=== PATIENT | female | born 1930 | race Caucasian/White ===

== ENCOUNTER 2017-10-16 17:31 | Inpatient (IN) | payer MEDICARE ==
[2017-10-16] MEDS ORDERED: SODIUM BICARB 8.4% 50 ML VIAL (1 MEQ/ML) IV ONE (19:42)
[2017-10-16] MEDS ORDERED: SODIUM BICARB 8.4% 50 ML SYR (1 MEQ/ML) IV ONE (20:30)
[2017-10-16] MEDS: DEXTROSE 5% IN WATER 1,000 ML with SODIUM BICARB (1 MEQ/ML) 100 ML IV SCH (21:01)
[2017-10-16] MEDS: METOPROLOL TARTRATE 50 MG TAB PO SCH (21:02)
[2017-10-16] MEDS: ASPIRIN 81 MG PO SCH (21:03)
--- NOTE | 2017-10-16 21:33 | HP ---
HISTORY AND PHYSICAL ATTENDING PHYSICIAN: Dr. Gadiel Faye. DATE OF ADMISSION: 10/16/2017. CHIEF COMPLAINT: Shortness of breath. HISTORY OF PRESENT ILLNESS: This elderly female presents to the office with complaint of being short of breath for the past at least 4 or 5 days. The patient said she had a little bit symptoms suggestive of possible flu. She has had no symptoms of fever, chills, cough, but does feel cold all the time. Denied any cough, congestion, or any dysuria. The patient does have some frequent loose stools. She has history of hyperkalemia and does use Kayexalate with help. The patient also has a history of chronic kidney disease stage 4 and chronic acidosis with CO2 generally running about 15. The patient presents to the office without any other symptoms of chest pain, angina, palpitations. She does have a history of coronary artery disease. The patient has history of chronic congestive cardiac failure. Probable mild COPD and history of left nephrectomy. She does have history of degenerative arthritis. Otherwise no history of any CVA, liver disease, kidney disease, or bleeding. Does have some mild chronic anemia. The patient otherwise is fairly active. No history of any CVA. PAST MEDICAL HISTORY: Past history of hypothyroidism, on replacement therapy. 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 Had osteoporotic compression fractures of the spine. PAST SURGICAL HISTORY: Appendectomy, total abdominal hysterectomy, left nephrectomy, multiple bowel surgeries for obstruction, lumbosacral surgery. Also has a previous history of colonoscopy almost 11 years ago. PERSONAL HISTORY: Nonsmoker. Alcohol none. ALLERGIES: THE PATIENT REPORTS ALLERGIES TO FLU INJECTIONS. However, the patient has had a Pneumovax on 12/10/2014. She did have a flu vaccine on 07/09/2017. MORPHINE which causes itching. MEDICATIONS: Include [place] 5/325 q.i.d., metoprolol 50 mg b.i.d. Aspirin 81 mg daily. Vitamin B12 daily. Levothyroxine 150 mcg daily. Loperamide p.r.n. t.i.d. Multivitamins daily. Sodium bicarb 2 tabs t.i.d. and Kayexalate 15 g twice a week. SOCIAL HISTORY: Patient is , lives alone. Daughter helps around. FAMILY HISTORY: Family medical history: Father at age of 90 of unknown causes. Mother at age 65. She had a thoracic aortic aneurysm and had a brother at the age of 50, had alcoholic dependency. Patient has 1 daughter and 1 son and both in good health. REVIEW OF SYSTEMS: Neuro: Denies any headaches, dizziness. No double vision or blurred vision. No symptoms of TIA, syncope or seizures. Psych: No anxiety, depression. CARDIAC: Denies chest pain, angina, palpitations. Respiratory: Present complaint of shortness of breath. No cough. No hemoptysis. GI no nausea, vomiting, abdominal pain. Some mild chronic diarrhea. no symptoms of dysuria, hematuria, urgency, frequency. Extremities: No pain. Mild edema. The patient does have chronic arthritic symptoms. CONSTITUTIONAL: No fever or chills. Hematological: History of mild chronic anemia. Musculoskeletal: Pain. Arthritic pain. SKIN: No rashes. PHYSICAL EXAMINATION: Pleasant female in no distress except she is tachypneic. Basically vital signs revealed show temperature 97, pulse 112, respirations 27, blood pressure 154/86, pulse ox of . HEENT: Normocephalic. NECK: Supple. No JVD. CHEST: Clear to auscultation. There is mild generalized decreased air flow. Few dry crackles at the right base. Cardiac distant. HEART: Sounds S1, S2 with no gallop. Systolic murmur 2/6 left sternal border. ABDOMEN: Soft. No palpable masses. Bowel sounds normal. No organomegaly. No abdominal bruits. Extremities reveal trace edema at the ankles. Neurological awake, alert, oriented x3 with well-coordinated movements. The fingers reveal blue right index finger. The patient has evidence of Raynaud's. LABORATORY ASSESSMENT: As an outpatient revealed a 7.7 white count, hemoglobin 12.5, MCV 123.9, platelet count 389, lymphocytes 28%. Chemistry revealed sodium 145, potassium 5.4, chloride 116, CO2 content less than 5, BUN 42, creatinine 2.6, glucose 107, alkaline phosphatase 164, amylase 113, lipase 106. Albumin 4.3. Chest x-ray, no acute evidence of any changes. ASSESSMENT: 1. Metabolic acidosis due to both renal disease and chronic mild diarrhea. 2. Coronary artery disease, stable. 3. History of nephrectomy. Left nephrectomy. 4. Mild hyperkalemia. PLAN: The patient is admitted to the hospital, she will be given 1 amp of sodium bicarbonate IV push and then IV dextrose with bicarbonate 2 amps at 100 mL/h. The patient will be continued on all sodium bicarbonate. We will ask Nephrology to see the patient. Patient's condition is discussed with the patient and daughter. Prognosis guarded. ELLIOTT / VERENICE: [id number] /
[2017-10-16] MEDS: HYDROcodone/APAP 5-325MG 1 EACH TAB PO PRN (21:42)
[2017-10-16] MEDS ORDERED: SODIUM BICARBONATE TAB 650 MG TAB PO SCH (22:00)
[2017-10-17] MEDS: HYDROcodone/APAP 5-325MG 1 EACH TAB PO PRN ×2 (05:07→20:30)
[2017-10-17] MEDS: LEVOTHYROXINE 75 MCG TAB PO SCH (05:46)
[2017-10-17] MEDS: SODIUM BICARBONATE TAB 650 MG TAB PO SCH ×4 (06:19→20:33)
[2017-10-17 06:29] LABS: Appearance,Urine Cloudy (Clear); Bacteria,Urine Rare /hpf; Bilirubin,Urine Negative (Negative); Blood,Urine Small (Negative); Color,Urine Light Yellow; Glucose,Urine (UA) Negative (Negative); Ketones,Urine Negative (Negative); Leukocyte Esterase,Urine Large (Negative); Mucus,Urine Rare /hpf; Nitrite,Urine Positive (Negative); Protein,Urine 1+ (Negative); RBC,Urine 5 /hpf (0-5); Specific Gravity,Urine 1.012 (1.001-1.035); Squamous Epithelial Cell,Urine <1 /hpf (0-4); Urobilinogen,Urine <2.0 mg/dL (<2.0); WBC,Urine >182 /hpf (0-5)
[2017-10-17] MEDS: METOPROLOL TARTRATE 50 MG TAB PO SCH ×2 (07:58→20:34)
[2017-10-17] MEDS: CIPROFLOXACIN HCL 250 MG TAB PO SCH (08:00)
[2017-10-17] MEDS: DEXTROSE 5% IN WATER 1,000 ML with SODIUM BICARB (1 MEQ/ML) 100 ML IV SCH (08:02)
[2017-10-17 08:18] LABS: Calcium 8.4 mg/dL (8.4-10.2); Potassium 4.3 mmol/L (3.5-5.1)
[2017-10-17 13:44] VITALS: BMI 19.1
--- NOTE | 2017-10-17 14:20 | P.NPCON ---
History of Present Illness - Reason for Consult acute renal failure - History of Present Illness Reason for consultation: Acute kidney injury and metabolic acidosis History of present illness: Patient is a 86-year-old female seen in renal consultation for acute kidney injury and metabolic acidosis. Patient does have chronic kidney disease stage III due to solitary right kidney with creatinine of 1.5 in October 2015. Patient states her left kidney was nonfunctioning and subsequently underwent a nephrectomy about 6 years ago. Patient also has chronic diarrhea due to bowel resection that she's had in the past due to multiple small bowel obstructions. Patient states the last few days she felt like she caught the flu. She did have 2 episodes of vomiting. She continues to have intermittent loose bowel movements. She had blood work done as an outpatient and was subsequently sent to the hospital due to acute kidney injury and severe metabolic acidosis. Her creatinine was 2.6 and is down to 2.13 today. Her bicarb level was also less than 5 and is up to 11 now. She is currently maintained on a bicarbonate drip. Oral intake is fair although she doesn't like hospital food. She denies use of NSAIDs. Denies fevers. Doesn't with itches. Denies any active bleeding. No hematuria or dysuria. Vital signs are stable. General: The patient appeared well nourished and normally developed. HEENT: Head exam is unremarkable. Neck is without jugular venous distension. LUNGS: Lungs are clear to auscultation and percussion. Breath sounds decreased. HEART: Rate and Rhythm are regular. First and second heart sounds normal. No murmurs, rubs or gallops. ABDOMEN: Abdominal exam reveals normal bowel sounds. Non-tender and non- distended. No evidence of peritonitis. EXTREMITITES: No clubbing, cyanosis, or edema. 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 Last Myocardial Infarction Date:: 2011 History of Any Multi-Drug Resistant Organisms: None Reported Past Surgical History: Appendectomy, Bowel Resection, Heart Catheterization With Stent, Hernia Repair, Hysterectomy, Orthopedic Surgery Additional Past Surgical History / Comment(s): FUISON L2 THRU L5, HEART CATH W/ STENT TO RCA , LT NEPHRECTOMY FOR KIDNEY THAT DID'NT DEVELOPE, KALINA CATARACTS, Past Anesthesia/Blood Transfusion Reactions: No Reported Reaction Date of Last Stent Placement:: Smoking Status: Never smoker - Past Family History Mother Family Medical History: Cancer Additional Family Medical History / Comment(s): CERVICL CANCER Father History Unknown: Yes Additional Family Medical History / Comment(s): IN HIS Medications and Allergies Home Medications Medication Instructions Recorded Confirmed Type Aspirin EC [Ecotrin Low Dose] 81 mg PO HS 10/12/15 10/16/17 History Cholecalciferol [Vitamin D3] 1,000 unit PO HS 10/12/15 10/16/17 History Cyanocobalamin [Vitamin B-12] 500 mcg PO DAILY 10/12/15 10/16/17 History Folic Acid 1 mg PO HS 10/12/15 10/16/17 History HYDROcodone/APAP 5-325MG [[place] 1 tab PO QID PRN 10/12/15 10/16/17 History 5-325] Levothyroxine Sodium [Synthroid] 150 mcg PO DAILY 10/12/15 10/16/17 History Metoprolol Tartrate [Lopressor] 50 mg PO BID 10/12/15 10/16/17 History Multivitamins, Thera [Multivitamin 1 tab PO DAILY 10/12/15 10/16/17 History (formulary)] [place]-3 Fatty Acids/Fish Oil [Fish 1 cap PO DAILY 10/12/15 10/16/17 History Oil 1,000 mg Softgel] Sertraline [Zoloft] 50 mg PO DAILY 10/12/15 10/16/17 History Sodium Bicarbonate Tab 1,300 mg PO TID 10/12/15 10/16/17 History Sodium Polystyrene Sulfonate 5 gm PO TUFR 10/12/15 10/16/17 History [Kayexalate] Vit C/E/Zn/Coppr/Lutein/Zeaxan 1 cap PO BID 10/12/15 10/16/17 History [Preservision Areds 2 Softgel] Allergies Allergy/AdvReac Type Severity Reaction Status Date / Time No Known Allergies Allergy Verified 10/16/17 19:20 Physical Exam Vitals: Vital Signs Temp Pulse Resp BP BP Pulse Ox 10/17/17 06:35 97.1 F L 85 20 114/63 98 10/16/17 23:00 97.6 F 85 16 150/77 90 L 10/16/17 19:03 97.0 F L 112 H 27 H 154/86 Intake and Output 10/16/17 10/17/17 10/17/17 22:59 06:59 14:59 Other: # Voids 2 # Bowel Movements 1 Weight 46 kg 46 kg Patient Weight 10/18/17 06:59 Weight 46 kg Results - Lab Results Most recent lab results Calcium 8.4 mg/dL (8.4-10.2) 10/17/17 07:25 10/17/17 07:25 Assessment and Plan Plan: Assessment: #1. Nonoliguric acute kidney injury mostly prerenal secondary to poor oral intake. Improving with IV hydration. Creatinine was 2.6 as of yesterday and is down to 2.13 today. #2. Anion gap metabolic acidosis secondary to acute kidney injury as well as diarrhea. Improving. #3. Chronic kidney disease stage III secondary to solitary right kidney with creatinine of 1.5 in October 2015. #4. Pyuria. Urine culture pending. #5. Status post left nephrectomy about 6 years ago. Plan: Continue isotonic sodium bicarbonate drip to be run at 100 mL an hour. Follow-up urine culture. Maintain oral sodium bicarbonate supplementation. Avoid nephrotoxic agents and hypotensive episodes. Encourage oral intake. Repeat electrolytes in the morning. Thank you for the consultation. I will continue to follow the patient with you during her hospital stay.
[2017-10-17] MEDS: DEXTROSE 5% IN WATER 1,000 ML with SODIUM BICARB (1 MEQ/ML) 150 ML IV SCH (14:58)
[2017-10-17] MEDS: ASPIRIN 81 MG PO SCH (20:34)
--- NOTE | 2017-10-17 22:13 | PN ---
PROGRESS NOTE CHIEF COMPLAINT: Re-evaluation. HISTORY OF PRESENT ILLNESS: This is a 86-year-old female who was admitted to the hospital because of shortness of breath. The patient's shortness of breath was mostly related to hypoventilation from metabolic acidosis. The patient's CO2 content was less than 5. She is feeling much better today. Patient otherwise denies significant other symptoms. REVIEW OF SYSTEMS: NEURO: Denies any headaches, dizziness. PSYCH: No anxiety. CARDIAC: No chest pain, angina, palpitations. RESPIRATORY: Denies shortness of breath, cough, hemoptysis. GI: No nausea, vomiting, abdominal pain. The diarrhea has improved. : No symptoms of dysuria or hematuria. EXTREMITIES: No pain. CONSTITUTIONAL: No fever or chills. PHYSICAL EXAMINATION: Pleasant female, in no distress. Vital signs reveal temperature 97.1, pulse 85, respirations 20, blood pressure 114/63, pulse ox of 98% on room air. HEENT: Normocephalic. NECK: Supple. No JVD. CHEST: Clear to auscultation and percussion. CARDIAC: Normal S1, S2 with no gallop. Systolic murmur 2/6, left sternal border. ABDOMEN: Soft. Bowel sounds present. Extremities reveal trace edema. NEUROLOGIC: Awake, alert, oriented with well-coordinated movements. LABORATORY ASSESSMENT: Sodium 142, potassium 4.3, chloride 112, CO2 content 11. BUN 44, creatinine 2.13. Urinalysis with positive nitrites and pyuria. ASSESSMENT: 1. Acute kidney failure, improving. 2. Chronic renal failure. 3. History of nephrectomy. 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 5. Chronic diarrhea. 6. Probable urinary tract infection, asymptomatic. PLAN: The patient has been started on Cipro pending culture. Meanwhile, the patient will be continued on the bicarbonate and hydration. The patient's condition was discussed with the patient. Prognosis is guarded. I reviewed the consultation report from Dr. Barnes. The patient's condition is improved. Continue present regimen. MMODL / IJN: [id number] /
[2017-10-18] MEDS: DEXTROSE 5% IN WATER 1,000 ML with SODIUM BICARB (1 MEQ/ML) 150 ML IV SCH (01:22)
[2017-10-18] MEDS: HYDROcodone/APAP 5-325MG 1 EACH TAB PO PRN ×4 (02:00→22:36)
[2017-10-18] MEDS: LEVOTHYROXINE 75 MCG TAB PO SCH (06:02)
[2017-10-18 08:18] LABS: Magnesium 1.7 mg/dL (1.6-2.3); Potassium 3.9 mmol/L (3.5-5.1)
[2017-10-18] MEDS: CIPROFLOXACIN HCL 250 MG TAB PO SCH (08:47)
[2017-10-18] MEDS: METOPROLOL TARTRATE 50 MG TAB PO SCH ×2 (08:47→22:33)
[2017-10-18] MEDS: SODIUM BICARBONATE TAB 650 MG TAB PO SCH ×3 (08:47→22:33)
--- NOTE | 2017-10-18 11:12 | P.PN ---
Subjective Patient is seen in follow-up for acute kidney injury and metabolic acidosis. Her bicarb level is up to 20 today. She is currently maintained on sodium bicarbonate drip. Renal function is also improving with creatinine down to 1.75 today. Patient does have chronic kidney disease stage III with baseline creatinine near 1.5 due to solitary right kidney. She is known to have chronic diarrhea and has undergone bowel resection in the past due to multiple small bowel obstructions. She continues to have loose bowel movements. She is feeling somewhat nauseous today. No vomiting. Denies chest pain or shortness of breath. Vital signs are stable. General: The patient appeared well nourished and normally developed. HEENT: Head exam is unremarkable. Neck is without jugular venous distension. LUNGS: Lungs are clear to auscultation and percussion. Breath sounds decreased. HEART: Rate and Rhythm are regular. First and second heart sounds normal. No murmurs, rubs or gallops. ABDOMEN: Abdominal exam reveals normal bowel sounds. Non-tender and non- distended. No evidence of peritonitis. EXTREMITITES: No clubbing, cyanosis, or edema. Objective - Vital Signs Vital signs: Vital Signs Temp 97.4 F L 10/18/17 07:00 Pulse 84 10/18/17 07:00 Resp 16 10/18/17 07:00 BP 135/87 10/18/17 07:00 Pulse Ox 97 10/18/17 07:00 Intake & Output 10/17/17 10/18/17 10/18/17 18:59 06:59 18:59 Intake Total 480 500 Balance 480 500 Weight 46 kg Intake: Oral 480 500 Other: # Voids 3 2 # Bowel Movements 2 0 - Labs CBC & Chem 7: 10/18/17 07:05 Labs: Abnormal Lab Results - Last 24 Hours (Table) 10/18/17 Range/Units 07:05 Carbon Dioxide 20 L (22-30) mmol/L BUN 34 H (7-17) mg/dL Creatinine 1.75 H (0.52-1.04) mg/dL Calcium 8.0 L (8.4-10.2) mg/dL Assessment and Plan Plan: Assessment: #1. Nonoliguric acute kidney injury mostly prerenal secondary to poor oral intake. Improving with IV hydration. Creatinine was 2.6 on admission and is down to 1.75 today. #2. Anion gap metabolic acidosis secondary to acute kidney injury as well as diarrhea. Improving. #3. Chronic kidney disease stage III secondary to solitary right kidney with creatinine of 1.5 in October 2015. #4. Pyuria. Urine culture pending. #5. Status post left nephrectomy about 6 years ago. Plan: Discontinue sodium bicarbonate drip. Start normal saline at 60 mL an hour for maintenance fluids. Follow-up urine culture. Maintain oral sodium bicarbonate supplementation. Avoid nephrotoxic agents and hypotensive episodes. Encourage oral intake. Repeat electrolytes in the morning. Anticipate discharge soon. She will and to follow-up as an outpatient in the next 2 weeks.
[2017-10-18] MEDS: SODIUM CHLORIDE 0.9% 1,000 ML IV SCH (13:23)
[2017-10-18] MEDS: ONDANSETRON 4 MG/2 ML VIAL IVP PRN ×2 (14:37→21:05)
--- NOTE | 2017-10-18 21:44 | PN ---
PROGRESS NOTE ATTENDING PHYSICIAN: Dr. Eddy Faye. CHIEF COMPLAINT: Re-evaluation. HISTORY OF PRESENT ILLNESS: This lady was admitted to the hospital because of shortness of breath. The patient is noted to have significant metabolic acidosis. She is feeling better today. Her tachypnea has resolved. Her CO2 content is up to 20. The patient has underlying chronic renal failure, probably RTA 4 as well as previous nephrectomy. She also has a history of chronic kidney disease stage 4 and a history of diarrhea. Would expect the patient's potassium to go down with the diarrhea; however, the patient tends to have hyperkalemia and suspect this is because of the high RTA 4. The patient's condition discussed with the patient. She is feeling better, as mentioned above. REVIEW OF SYSTEMS: NEURO: Denies any headaches, dizziness. PSYCH: No anxiety. CARDIAC: No chest pain, angina, palpitations. RESPIRATORY: Denies shortness of breath, cough. GI: No nausea, vomiting, abdominal pain, diarrhea. : No symptoms of dysuria, hematuria. EXTREMITIES: No pain, edema. CONSTITUTIONAL: No fever, chills. PHYSICAL EXAMINATION: Pleasant female in no distress. Vitals reveal temperature 97.4, pulse 84, respirations 16, blood pressure 135/87. HEENT: Normocephalic NECK: Supple. No JVD. CHEST: Clear to auscultation. Mild generalized decreased air flow. CARDIAC: Normal S1, S2 with no gallop. Systolic murmur 2/6 left sternal border. ABDOMEN: Soft. No palpable masses. Bowel sounds normal. No organomegaly. No femoral bruits. Extremities reveal trace edema. NEUROLOGIC: Awake, alert, oriented with well-coordinated movements. LABORATORY ASSESSMENT: Sodium 143, potassium 3.9, chloride 106, CO2 content 20, BUN 34, creatinine 1.75. Urine culture is also pending. ASSESSMENT: 1. Metabolic acidosis, improving. 2. Acute on chronic renal failure. 3. History of left nephrectomy. 4. Coronary artery disease, stable. PLAN: The patient is stable. Continue present medical regimen. Patient's condition discussed with the patient. Prognosis guarded. Patient's potential discharge home tomorrow. MMODL / IJN: [id number] /
[2017-10-18] MEDS: ASPIRIN 81 MG PO SCH (22:33)
[2017-10-19] MEDS: HYDROcodone/APAP 5-325MG 1 EACH TAB PO PRN ×3 (04:13→21:18)
[2017-10-19] MEDS: ONDANSETRON 4 MG/2 ML VIAL IVP PRN ×2 (05:27→16:26)
[2017-10-19] MEDS: LEVOTHYROXINE 75 MCG TAB PO SCH (06:22)
[2017-10-19] MEDS: SODIUM CHLORIDE 0.9% 1,000 ML IV SCH ×2 (06:23→20:59)
[2017-10-19] MEDS: SODIUM BICARBONATE TAB 650 MG TAB PO SCH ×3 (08:54→20:58)
[2017-10-19] MEDS: CIPROFLOXACIN HCL 250 MG TAB PO SCH (08:54)
[2017-10-19] MEDS: METOPROLOL TARTRATE 50 MG TAB PO SCH ×2 (08:54→20:58)
[2017-10-19 09:22] LABS: Albumin 3.5 g/dL (3.5-5.0); Calcium 7.9 mg/dL (8.4-10.2); Potassium 3.6 mmol/L (3.5-5.1); Total Bilirubin 0.2 mg/dL (0.2-1.3); Total Protein 6.1 g/dL (6.3-8.2)
[2017-10-19 09:32] LABS: HCT 35.8 % (34.0-46.0); HGB 10.6 gm/dL (11.4-16.0); Hypochromasia Moderate; MCH 34.7 pg (25.0-35.0); MCHC 29.8 g/dL (31.0-37.0); Macrocytosis Marked; Mean Platelet Volume 7.6; Platelet Count 495 k/uL (150-450); Poikilocytosis Slight; RBC 3.06 m/uL (3.80-5.40); RDW 15.9 % (11.5-15.5); WBC 6.6 k/uL (3.8-10.6)
[2017-10-19 09:33] LABS: MCV 116.7 fL (80.0-100.0)
--- NOTE | 2017-10-19 14:13 | P.PN ---
Subjective Patient is seen in follow-up for acute kidney injury and metabolic acidosis. Her bicarb level is up to 26 today. Renal function is also improving with creatinine down to 1.57 today. Patient does have chronic kidney disease stage III with baseline creatinine near 1.5 due to solitary right kidney. She is known to have chronic diarrhea and has undergone bowel resection in the past due to multiple small bowel obstructions. She continues to have loose bowel movements. She is feeling somewhat nauseous today. No vomiting. Denies chest pain or shortness of breath. Vital signs are stable. General: The patient appeared well nourished and normally developed. HEENT: Head exam is unremarkable. Neck is without jugular venous distension. LUNGS: Lungs are clear to auscultation and percussion. Breath sounds decreased. HEART: Rate and Rhythm are regular. First and second heart sounds normal. No murmurs, rubs or gallops. ABDOMEN: Abdominal exam reveals normal bowel sounds. Non-tender and non- distended. No evidence of peritonitis. EXTREMITITES: No clubbing, cyanosis, or edema. Objective - Vital Signs Vital signs: Vital Signs Temp 97.6 F 10/19/17 07:00 Pulse 80 10/19/17 08:00 Resp 16 10/19/17 08:00 BP 127/74 10/19/17 07:00 Pulse Ox 92 L 10/19/17 07:00 Intake & Output 10/18/17 10/19/17 10/19/17 18:59 06:59 18:59 Intake Total 150 300 240 Balance 150 300 240 Intake: Oral 150 300 240 Other: # Voids 5 1 # Bowel Movements 0 # Emeses 1 - Labs CBC & Chem 7: 10/19/17 08:44 10/19/17 08:03 Labs: Abnormal Lab Results - Last 24 Hours (Table) 10/19/17 10/19/17 Range/Units 08:03 08:44 RBC 3.06 L (3.80-5.40) m/uL Hgb 10.6 L (11.4-16.0) gm/dL MCV 116.7 H D (80.0-100.0) fL MCHC 29.8 L (31.0-37.0) g/dL RDW 15.9 H (11.5-15.5) % Plt Count 495 H (150-450) k/uL BUN 22 H (7-17) mg/dL Creatinine 1.57 H (0.52-1.04) mg/dL Glucose 107 H (74-99) mg/dL Calcium 7.9 L (8.4-10.2) mg/dL Alkaline Phosphatase 145 H (38-126) U/L Total Protein 6.1 L (6.3-8.2) g/dL Microbiology - Last 24 Hours (Table) 10/17/17 05:00 Urine Culture - Preliminary Urine,Voided Gram Neg Bacilli Assessment and Plan Plan: Assessment: #1. Nonoliguric acute kidney injury mostly prerenal secondary to poor oral intake. Improving with IV hydration. Creatinine was 2.6 on admission and is down to 1.57 today. #2. Anion gap metabolic acidosis secondary to acute kidney injury as well as diarrhea. Improving. #3. Chronic kidney disease stage III secondary to solitary right kidney with creatinine of 1.5 in October 2015. #4. UTI with urine culture positive for gram-negative bacilli maintain antibiotics. #5. Status post left nephrectomy about 6 years ago. Plan: Continue normal saline to be run at 60 mL an hour. Maintain oral sodium bicarbonate supplementation. Avoid nephrotoxic agents and hypotensive episodes. Encourage oral intake. Repeat electrolytes in the morning. Anticipate discharge soon. She will and to follow-up as an outpatient in the next 2 weeks.
[2017-10-19] MEDS: ASPIRIN 81 MG PO SCH (20:58)
--- NOTE | 2017-10-19 22:30 | PN ---
PROGRESS NOTE CHIEF COMPLAINT: Re-evaluation. HISTORY OF PRESENT ILLNESS: Elderly female, 86-year-old, was admitted to the hospital with shortness of breath. Patient was noted to be acidotic. The patient does have a history of chronic renal failure. She had no evidence of any other issues except for some urinary tract infection. Patient is on Cipro. She developed some nausea and vomiting yesterday. She is still somewhat sensitive to her stomach. REVIEW OF SYSTEMS: NEURO: Denies any headaches, dizziness. PSYCH: No anxiety. CARDIAC: No chest pain, angina, palpitation. RESPIRATORY: No shortness of breath, cough, hemoptysis. GI: No nausea, vomiting, abdominal pain, diarrhea. : No symptoms of dysuria, hematuria. EXTREMITIES: No pain, edema. CONSTITUTIONAL: No fever, chills. PHYSICAL EXAMINATION: Pleasant female in no distress. Vitals are stable as recorded. HEENT: Normocephalic. NECK: Supple. No JVD. CHEST: Clear to auscultation and percussion. CARDIAC: Normal S1, S2 with no gallop. Systolic murmur 2/6, left sternal border. ABDOMEN: Soft. Bowel sounds present. Extremities reveal trace edema. Good pulses, both upper and lower extremities. NEUROLOGIC: Oriented with well-coordinated movements. LABORATORY ASSESSMENT: CBC reveals a hemoglobin of 10.6, white count 6.6. Electrolytes reveal sodium 146, potassium 3.6, chloride 105, CO2 content 26, BUN 22, creatinine 1.57. GFR 79. ASSESSMENT: 1. Metabolic acidosis, improving. 2. Nausea, vomiting; etiology unclear. Previously she was noted to have evidence of gallbladder dysfunction and intermittent nausea, vomiting. 3. Dehydration, improving. 4. Acute on chronic renal failure, improved. PLAN: Patient is stable. Continue present medical regimen. Patient's condition discussed with the patient. Prognosis is guarded. Ultrasound of the gallbladder. CBC reveals normal white count. Hemoglobin is stable at 10.6. Dehydration and acute renal failure are improved. Continue present medical regimen. MMODL / IJN: [id number] /
[2017-10-20 06:16] VITALS: RESP 16
--- NOTE | 2017-10-20 08:01 | US ---
EXAMINATION TYPE: US gallbladder DATE OF EXAM: 10/20/2017 COMPARISON: NONE CLINICAL HISTORY: nausea. Pt states RUQ pain EXAM MEASUREMENTS: Liver Length: 13.6 cm Gallbladder Wall: 0.2 cm CBD: 0.5 cm Right Kidney: 9.8 x 5.1 x 4.3 cm Pancreas: wnl Liver: wnl Gallbladder: wnl, multiple folds Evidence for sonographic [place]'s sign: No CBD: wnl Right Kidney: Echogenic in appearance with possible calculi at lower pole= 0.5 cm with slightly dila oren renal pelvis= 1.3 cm The pancreas is unremarkable. The liver is normal in size without biliary dilatation. The gallbladder is unremarkable. There is no evidence of cholelithiasis. The gallbladder wall measure s 2 mm. The distal common hepatic duct measures 5 mm. There is a nonshadowing echogenic focus in the lower pole of the right kidney measuring 5 mm. This ma y represent an angiomyolipoma. There is an extrarenal pelvis on the right. 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
[2017-10-20] MEDS: SODIUM BICARBONATE TAB 650 MG TAB PO SCH ×3 (08:23→23:00)
[2017-10-20] MEDS: METOPROLOL TARTRATE 50 MG TAB PO SCH ×2 (08:24→23:00)
[2017-10-20] MEDS: CIPROFLOXACIN HCL 250 MG TAB PO SCH (08:24)
[2017-10-20] MEDS: LEVOTHYROXINE 75 MCG TAB PO SCH (08:24)
[2017-10-20] MEDS: HYDROcodone/APAP 5-325MG 1 EACH TAB PO PRN ×3 (08:28→21:22)
[2017-10-20 08:39] LABS: Calcium 8.3 mg/dL (8.4-10.2)
[2017-10-20 08:43] LABS: Potassium 3.8 mmol/L (3.5-5.1)
[2017-10-20] MEDS: SODIUM CHLORIDE 0.9% 1,000 ML IV SCH (12:55)
--- NOTE | 2017-10-20 14:37 | P.PN ---
Subjective Progress Note Date: 10/20/17 Principal diagnosis: Acidosis and acute on chronic renal failure Chief complaint: Reevaluation. History present illness: 86-year-old female was admitted to the hospital with complaint of shortness of breath and noted to be markedly acidotic with CO2 less than 5. 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 Would expect patient to be more eukalemic or hypokalemic with the diarrhea however on the outpatient she often is hyperkalemic and is treated with Kayexalate at least twice a week. Patient' s also been on bicarbonate 1300 mg 3 times a day. Patient was doing well after hydration and bicarbonate replacement but she has had some nausea and poor intake for the past couple of days. She has had episodes of poorly functioning gallbladder.. At present she has no abdominal tenderness normal hepatic enzymes normal bilirubin. On examination on an ultrasound gallbladder does not seem to be distended. The patient had a previous significant gallbladder distention in a CAT scan couple of years ago. The patient does have evidence of urinary tract infection with Klebsiella and the patient is on Cipro as an appropriate antibiotic for sensitivity. The patient has had no vomiting but continued nausea and poor intake. We'll anticipate patient transfer and discharge home soon. REVIEW OF SYSTEMS: Neuro: Denies any headaches dizziness. Psych: Denies anxiety depression feels oriented. Cardiac: Denies chest pain and angina palpitations. Respiratory: Denies shortness of breath cough. GI: Some nausea no vomiting no abdominal pain or diarrhea or constipation : Denies dysuria hematuria. Extremities: Denies pain. No edema. Skin: Intact. Constitutional: No fever, chills. Objective - Vital Signs Vital signs: Vital Signs Temp 97.7 F 10/20/17 06:16 Pulse 65 10/20/17 08:29 Resp 16 10/20/17 08:29 BP 147/73 10/20/17 06:16 Pulse Ox 94 L 10/20/17 06:16 Intake & Output 10/19/17 10/20/17 10/20/17 18:59 06:59 18:59 Intake Total 480 Balance 480 Intake: Oral 480 Other: # Voids 4 2 # Bowel Movements 0 PHYSICAL EXAMINATION: Cooperative, at present in no acute distress. HEENT: Neck supple. No JVD. Chest: Clear to auscultation increased percussion note bilateral . Cardiac: Normal S1-S2 no gallops no murmur . Abdomen: Soft bowel sounds present. Extremities: Trace edema no tenderness Neurologically: Awake, alert, oriented with well-coordinated movements. - Labs CBC & Chem 7: 10/19/17 08:44 10/20/17 08:02 Labs: Abnormal Lab Results - Last 24 Hours (Table) 10/20/17 Range/Units 08:02 Carbon Dioxide 21 L (22-30) mmol/L BUN 19 H (7-17) mg/dL Creatinine 1.35 H (0.52-1.04) mg/dL Calcium 8.3 L (8.4-10.2) mg/dL Microbiology - Last 24 Hours (Table) 10/17/17 05:00 Urine Culture - Final Urine,Voided Klebsiella pneumoniae Assessment and Plan Assessment: ASSESSMENT: 1. Acute metabolic acidosis resolved. 2. Acute on chronic renal failure. 3. History of nephrectomy. 4. Urinary tract infection. 5. Nausea vomiting unspecified. 6. Stable coronary artery disease. PLAN: Continue present medical regimen hydration and encouraged her intake. Potential discharge tomorrow.
[2017-10-20] MEDS: FAMOTIDINE 20 MG/2 ML VIAL IV SCH ×2 (15:44→23:00)
[2017-10-20] MEDS: ASPIRIN 81 MG PO SCH (23:00)
[2017-10-21] MEDS: HYDROcodone/APAP 5-325MG 1 EACH TAB PO PRN ×2 (03:01→11:16)
[2017-10-21] MEDS: LEVOTHYROXINE 75 MCG TAB PO SCH (06:21)
[2017-10-21 08:38] VITALS: BP 150/83; PULSE 66; TEMP 97.3
[2017-10-21] MEDS: FAMOTIDINE 20 MG/2 ML VIAL IV SCH (09:20)
[2017-10-21] MEDS: CIPROFLOXACIN HCL 250 MG TAB PO SCH (09:20)
[2017-10-21] MEDS: SODIUM BICARBONATE TAB 650 MG TAB PO SCH (09:21)
[2017-10-21] MEDS: METOPROLOL TARTRATE 50 MG TAB PO SCH (09:21)
--- NOTE | 2017-10-21 11:49 | P.DS ---
Providers Date of admission: 10/16/17 18:05 Attending physician: Edgar Faye Consults: 10/16/17 19:37 Consult Physician Routine Consulting Provider: Davon Barnes Consult Reason/Comments: CRF Do you want consulting provider notified?: Already Contacted Primary care physician: Edgar Faye [facility] Course: 86-year-old female was admitted to the hospital because of shortness of breath. Shortness of breath was mostly related to the metabolic Acidosis. Patient has history of chronic kidney disease stage IV and probably an RTA for picture. She also has a history of chronic diarrhea. Patient's on home bicarbonate replacement and periodically Kayexalate. The patient however bicarbonate was less than 5. Following admission she is given bicarbonate IV push and IV drip and hydrated. Status improved. The patient had an episode of vomiting and nausea. She does have a history of previous gallbladder dysfunction. Ultrasound gallbladder revealed normal gallbladder. The patient few yrs ago had a markedly distended gallbladder. The patient had urinary tract infection with Klebsiella placed on Cipro with help. Patient had no symptoms of dysuria. She is feeling much better eating well. She is to be discharged home. Encouraged to keep up with increased fluid intake and to continue to take bicarbonate tablets. Discharge diagnosis to include 1. Acute on chronic renal failure 2. Metabolic acidosis 3. Urinary tract infection 4. History of left nephrectomy 5. Stable coronary artery disease 6. Dehydration Patient Condition at Discharge: Stable Plan - Discharge Summary Discharge Rx Participant: No New Discharge Prescriptions: New Ciprofloxacin HCl [Cipro] 250 mg PO DAILY #5 tab Continue Multivitamins, Thera [Multivitamin (formulary)] 1 tab PO DAILY Vit C/E/Zn/Coppr/Lutein/Zeaxan [Preservision Areds 2 Softgel] 1 cap PO BID HYDROcodone/APAP 5-325MG [[place] 5-325] 1 tab PO QID PRN PRN Reason: Pain Folic Acid 1 mg PO HS Cholecalciferol [Vitamin D3] 1,000 unit PO HS Cyanocobalamin [Vitamin B-12] 500 mcg PO DAILY Aspirin EC [Ecotrin Low Dose] 81 mg PO HS Sertraline [Zoloft] 50 mg PO DAILY [place]-3 Fatty Acids/Fish Oil [Fish Oil 1,000 mg Softgel] 1 cap PO DAILY Metoprolol Tartrate [Lopressor] 50 mg PO BID Levothyroxine Sodium [Synthroid] 150 mcg PO DAILY Sodium Bicarbonate Tab 1,300 mg PO TID Sodium Polystyrene Sulfonate [Kayexalate] 5 gm PO TUFR Discharge Medication List Aspirin EC [Ecotrin Low Dose] 81 mg PO HS 10/12/15 [History] Cholecalciferol [Vitamin D3] 1,000 unit PO HS 10/12/15 [History] Cyanocobalamin [Vitamin B-12] 500 mcg PO DAILY 10/12/15 [History] Folic Acid 1 mg PO HS 10/12/15 [History] HYDROcodone/APAP 5-325MG [[place] 5-325] 1 tab PO QID PRN 10/12/15 [History] Levothyroxine Sodium [Synthroid] 150 mcg PO DAILY 10/12/15 [History] Metoprolol Tartrate [Lopressor] 50 mg PO BID 10/12/15 [History] Multivitamins, Thera [Multivitamin (formulary)] 1 tab PO DAILY 10/12/15 [History ] [place]-3 Fatty Acids/Fish Oil [Fish Oil 1,000 mg Softgel] 1 cap PO DAILY [History] Sertraline [Zoloft] 50 mg PO DAILY 10/12/15 [History] Sodium Bicarbonate Tab 1,300 mg PO TID 10/12/15 [History] Sodium Polystyrene Sulfonate [Kayexalate] 5 gm PO TUFR 10/12/15 [History] Vit C/E/Zn/Coppr/Lutein/Zeaxan [Preservision Areds 2 Softgel] 1 cap PO BID 10/12 [History] Ciprofloxacin HCl [Cipro] 250 mg PO DAILY #5 tab 10/21/17 [Rx] Patient Instructions/Handouts: Acute Kidney Injury (DC) Activity/Diet/Wound Care/Special Instructions: Cardiac diet. Activity as tolerated. Discharge Disposition: HOME SELF-CARE
[2017-10-22] MEDS ORDERED: FAMOTIDINE 20 MG TAB PO SCH (09:00)
== END 2017-10-21 14:16 | disposition home or self-care (01) | DRG 683 ==
LOC: 4MS4W 18:05
PROVIDERS: ADMIT Internal Medicine; ATTEND Internal Medicine
DX: N17.9 Acute kidney failure, unspecified (principal); E87.2 Acidosis; I13.0 Hypertensive heart and chronic kidney disease with heart failure and stage 1 through stage 4 chronic kidney disease, or unspecified chronic kidney disease; E87.5 Hyperkalemia; I50.9 Heart failure, unspecified; N39.0 Urinary tract infection, site not specified; E86.0 Dehydration; N18.4 Chronic kidney disease, stage 4 (severe); R06.82 Tachypnea, not elsewhere classified; J44.9 Chronic obstructive pulmonary disease, unspecified; M19.90 Unspecified osteoarthritis, unspecified site; E03.9 Hypothyroidism, unspecified; D64.9 Anemia, unspecified; B96.1 Klebsiella pneumoniae [K. pneumoniae] as the cause of diseases classified elsewhere; M81.0 Age-related osteoporosis without current pathological fracture; H40.9 Unspecified glaucoma; I25.10 Atherosclerotic heart disease of native coronary artery without angina pectoris; E87.6 Hypokalemia; K52.9 Noninfective gastroenteritis and colitis, unspecified; K21.9 Gastro-esophageal reflux disease without esophagitis; E78.5 Hyperlipidemia, unspecified; Z90.5 Acquired absence of kidney; Z81.1 Family history of alcohol abuse and dependence; Z88.6 Allergy status to analgesic agent; Z88.7 Allergy status to serum and vaccine; Z79.899 Other long term (current) drug therapy; Z79.891 Long term (current) use of opiate analgesic; Z90.89 Acquired absence of other organs; Z90.710 Acquired absence of both cervix and uterus; Z85.42 Personal history of malignant neoplasm of other parts of uterus; Z87.440 Personal history of urinary (tract) infections; Z98.1 Arthrodesis status; Z98.41 Cataract extraction status, right eye; Z98.42 Cataract extraction status, left eye; Z79.82 Long term (current) use of aspirin; I25.2 Old myocardial infarction; Z85.41 Personal history of malignant neoplasm of cervix uteri
CPT/HCPCS: 36415; 71046; 76705; 80048; 80053; 81001; 83735; 83880; 85027; 87077; 87086; 87186

== ENCOUNTER → 2017-10-16 | Outpatient (CLI) | payer MEDICARE ==
--- NOTE | 2017-10-16 11:49 | XR ---
EXAMINATION TYPE: XR chest 2V DATE OF EXAM: 10/16/2017 COMPARISON: 12/05/2012 HISTORY: Shortness of breath TECHNIQUE: Frontal and lateral views of the chest are obtained. FINDINGS: Scattered senescent parenchymal changes noted. Hyperinflation compatible with COPD. No evidence for infiltrate. No evidence for atelectasis. Stable calcified granuloma right midlung zon e. Heart size is stable. Mediastinal structures are stable and grossly unremarkable. No evidence for hilar prominence. Degenerative changes dorsal spine. IMPRESSION: 1. No evidence for acute pulmonary disease.
[2017-10-16 12:07] LABS: Anisocytosis Slight; HCT 42.2 % (34.0-46.0); HGB 12.5 gm/dL (11.4-16.0); Hypochromasia Marked; MCH 36.6 pg (25.0-35.0); MCHC 29.5 g/dL (31.0-37.0); MCV 123.9 fL (80.0-100.0); Macrocytosis Marked; Mean Platelet Volume 7.6; Platelet Count 389 k/uL (150-450); Poikilocytosis Slight; RBC 3.41 m/uL (3.80-5.40); RDW 16.2 % (11.5-15.5); WBC 7.7 k/uL (3.8-10.6)
[2017-10-16 12:18] LABS: ALT 39 U/L (9-52); AST 30 U/L (14-36); Albumin 4.3 g/dL (3.5-5.0); Alkaline Phosphatase 164 U/L (38-126); Blood Urea Nitrogen 42 mg/dL (7-17); Chloride 116 mmol/L (98-107); Glucose 107 mg/dL (74-99); Potassium 5.4 mmol/L (3.5-5.1); Sodium 145 mmol/L (137-145); Total Bilirubin 0.4 mg/dL (0.2-1.3); Total Protein 7.7 g/dL (6.3-8.2)
[2017-10-16 13:52] LABS: Carbon Dioxide <5 mmol/L (22-30)
== END | disposition home or self-care (01) ==
LOC: RADXRMAIN 11:14
PROVIDERS: ATTEND Internal Medicine
DX: R06.09 Other forms of dyspnea (principal)
CPT/HCPCS: 36415; 71046; 80053; 83880; 85027